=== PATIENT | female | born 1965 | race Caucasian/White ===

== ENCOUNTER → 2017-01-18 | Day surgery (SDC) | payer BC ==
[~2017-01-18] MED LIST: BUPIVACAINE HCL PF 0.25% 30 ML VIAL ONE; CLINDAMYCIN PHOS 600 MG/4 ML VIAL ONE; LACTATED RINGER'S 1000 ML INJ 1,000 ML ONE; MIDAZOLAM HCL 2 MG/2 ML VIAL ONE; ONDANSETRON HCL 4 MG/2 ML VIAL IV PUSH ONE; PROPOFOL 200 MG/20 ML AMP IV ONE
--- NOTE | 2017-01-21 08:43 | MP ---
cc: ELISE MADRID DATE OF SURGERY January 18, 2017 PREOPERATIVE DIAGNOSIS Left hand carpal tunnel syndrome. POSTOPERATIVE DIAGNOSIS Left hand carpal tunnel syndrome. SURGEON Elise Madrid MD [employer] [facility]. PROCEDURE Left hand open carpal tunnel release. ESTIMATED BLOOD LOSS Minimal ANESTHESIA TIVA. TOURNIQUET TIME 5 minutes at 250 mmHg pressure. PROCEDURE The patient was brought back to the operative theater. TIVA anesthesia was administered. She received intravenous clindamycin. The left upper she was prepped and draped in the usual sterile fashion. We gave infiltration of 0.25% Marcaine without epinephrine on the hand. The arm was exsanguinated. Tourniquet was raised. A standard volar incision on the proximal palm was created followed by dissection down to the deep transverse carpal ligament. We incised the ligament starting in the mid-aspect and then going proximal and then distal protecting the median nerve with a [place] elevator. There were some adhesions were noted underneath the ligament. The nerve was found to be intact. The tourniquet was released. Hemostasis was achieved. The skin was closed with 2-0 Vicryl followed by 3-0 nylon. A custom hand dressing was applied. The patient was brought back to the recovery room in stable addition. Elise Madrid MD BH/SSB /1:54 PM /8:31 AM
== END | disposition home or self-care (01) ==
LOC: ESDC 11:54
PROVIDERS: ATTEND Orthopaedic Surgery
DX: G56.02 Carpal tunnel syndrome, left upper limb (principal)
CPT/HCPCS: 01810; 64721; J2250; J2405; J3010; J7120